=== PATIENT | female | born 1970 | race African-American/Black ===

== ENCOUNTER 2019-01-31 20:00 | Inpatient (IN) | payer OTHER ==
[2019-01-31] MEDS ORDERED: SODIUM CHLORIDE 1,000 ML IV SCH (20:30)
[2019-01-31 21:06] LABS: URINE APPEARANCE CLOUDY; URINE COLOR RED; URINE GLUCOSE (UA) NEGATIVE (NEGATIVE)
[2019-01-31 21:07] LABS: PH,URINE 6.5 (4.5-8); URINE BILIRUBIN 1+ (NEGATIVE); URINE KETONE 1+ (NEGATIVE); URINE LEUK ESTERASE NEGATIVE (NEGATIVE); URINE NITRITE NEGATIVE (NEGATIVE); URINE PROTEIN 2+ (NEGATIVE)
--- NOTE | 2019-01-31 21:16 | PDOC ---
Documentation entered by Yumiko Walker SCRIBE, acting as scribe for Lb Sidhu MD. Lb Sidhu MD: This documentation has been prepared by the nhanibAaron blanco Lincy, SCRIBE, under my direction and personally reviewed by me in its entirety. I confirm that the documentation accurately reflects all work , treatment, procedures, and medical decision making performed by me. History of Present Illness - General Chief Complaint: Weakness Stated Complaint: LEGS WEAK, TINGLING Time Seen by Provider: 01/31/19 20:49 History Source: Patient Exam Limitations: No Limitations - History of Present Illness Initial Comments: 01/31/19 21:13 The patient is a 48-year-old female with a past medical history significant for CVA (12 years ago) presents to the emergency department with weakness and numbness. [place] The patient reports since then shes been having left sided weakness that would radiate to the right side, associated with left-hand numbness. The patient reports the symptoms have improved since the presentation the patient reports associated symptoms of fatigue. The patient reports the symptoms are slightly similar to prior CVA. The patient reports a prior episode of CVA was associated with visual deficit and left-sided weakness. Denies visual deficit. The patient states she is able to ambulate with a steady gait. PAST MEDICAL HISTORY: CVA (12 years ago). PAST SURGICAL HISTORY: no significant history FAMILY HISTORY: no pertinent history SOCIAL HISTORY: Pt lives with family and is employed. MEDICATIONS: reviewed ALLERGIES: As per nursing notes ROS: General: No fevers or chills, no weakness, no weight loss HEENT: No change in vision. No sore throat,. No ear pain CardioVascular: No chest pain or shortness of breath Respiratory:No cough, or wheezing. Gastrointestinal: no nausea, vomiting, diarrhea or constipation, No rectal bleeding Genitourinary: No dysuria, hematuria, or frequency Musculoskeletal: No joint or muscle pain or swelling Neurologic: +left sided weakness, Left hand numbness. No headache, vertigo, dizziness or loss of consciousness Psychiatric: nor depression Skin: No rashes or easy bruising Endocrine: no increased thirst or abnormal weight change Allergic: no skin or latex allergy All other systems reviewed and normal PE: General: Well-nourished well-developed individual, no acute distress HEENT: Throat: Normal, tonsils normal, no erythema or exudate Neck: Supple, no meningeal signs, no lymphadenopathy Eyes::Pupils equal reactive and round, extraocular motion intact Chest: Nontender to palpation Cardiac: S1-S2 normal, regular rate and rhythm, no murmurs rubs or gallops Respiratory: Lungs clear to auscultation bilateral Abdomen: Soft, nondistended, normal bowel sounds, nontender to palpation diffusely Extremities: Warm, dry, no cyanosis, clubbing, or edema Skin: No rashes Neuro: +decreased sensation and weakness to the left upper extremity. Alert and oriented x3, grossly intact, normal gait Psych: Normal mood and affect 01/31/19 22:32 Assessment plan: This is a 48-year-old female who comes in complaining of left- sided weakness and numbness 2 days. Patient has history of CVA in the past on the left side with similar symptoms. Patient had a workup including CBC, comp, chest x-ray and EKG. Also head CT Head CT was negative for any acute pathology Patient's CBC does show a chronic anemia with a hemoglobin of 7.9 Discussed admission with the hospitalist patient will be placed in a inpatient bed. Past History - Past Medical History Allergies/Adverse Reactions: Allergies Allergy/AdvReac Type Severity Reaction Status Date / Time No Known Allergies Allergy Verified 01/31/19 20:05 Home Medications: Ambulatory Orders NK [No Known Home Medication] 01/31/19 CVA: Yes COPD: No - Suicide/Smoking/Psychosocial Hx Smoking History: Never smoked Have you smoked in the past 12 months: No Information on smoking cessation initiated: No Hx Alcohol Use: No *Physical Exam - Vital Signs Last Vital Signs Temp Pulse Resp BP Pulse Ox 98.3 F 76 18 131/85 100 01/31/19 20:00 01/31/19 20:00 01/31/19 20:00 01/31/19 20:00 01/31/19 20:00 ED Treatment Course - LABORATORY CBC & Chemistry Diagram: 01/31/19 21:00 01/31/19 21:00 - ADDITIONAL ORDERS Additional order review: Laboratory Results 01/31/19 01/31/19 20:50 20:50 Urine Color Red Urine Appearance Cloudy Urine pH 6.5 Ur Specific [place] 1.025 Urine Protein 2+ Urine Glucose (UA) Negative Urine Ketones 1+ H Urine Blood 3+ Urine Nitrite Negative Urine Bilirubin 1+ Urine Urobilinogen 1.0 Ur Leukocyte Esterase Negative Urine HCG, Qual Negative *DC/Admit/Observation/Transfer Diagnosis at time of Disposition: CVA (cerebral vascular accident) Qualifiers: CVA mechanism: unspecified Qualified Code(s): I63.9 - Cerebral infarction, unspecified - Discharge Dispostion Disposition: HOME Condition at time of disposition: Stable Decision to Admit order: Yes - Referrals - Patient Instructions - Post Discharge Activity NIH Stroke Scale - Last Known Well Date/Time & Onset Date Last Known Well: 01/29/19 - Initial Evaluation Ask patient the month and their age: Answers both correctly Ask patient to open & close eyes; make fist and let go: Obeys both correctly Best gaze (horizontal eye movement): Normal Visual field testing: No visual field loss Facial paresis (Show teeth/raise eyebrows/close eyes tight): Normal symmetrical movement Motor Function: Left Arm: Normal Motor Function: Right Arm: Normal (extends arm 90 (or 45) degrees for 10 seconds without drift Motor Function: Left Leg: Normal (extends leg 30 degrees for 5 seconds without drift) Motor Function: Right Leg: Normal (extends leg 30 degrees for 5 seconds without drift) Limb Ataxia: No ataxia Sensory(Use pinprick test arms,legs,trunk,face/side to side): Mild to moderate decrease in sensation Best language (Describe picture, name items, read sentences): No Aphasia Dysarthria (read several words): Normal articulation Extinction and Inattention: No abnormality
[2019-01-31 21:19] LABS: BASO % 0.4 % (0-2.0); EOS % 0.4 % (0-4.5); HEMATOCRIT 25.7 % (32.4-45.2); HEMOGLOBIN 7.8 GM/dl (10.7-15.3); LYMPH % 13.2 % (8-40); MCHC 30.3 g/dl (32.0-36.0); MEAN CELL VOLUME 69.3 fl (80-96); MEAN PLT VOLUME 7.1 fl (7.5-11.1); MONO % 7.6 % (3.8-10.2); NEUT % 78.4 % (42.8-82.8); PLATELET COUNT 522 K/MM3 (134-434); RBC 3.71 M/mm3 (3.60-5.2); RDW 19.4 % (11.6-15.6); WHITE BLOOD COUNT 9.5 K/mm3 (4.0-10.8)
[2019-01-31 21:23] LABS: ADD RBC MORPHOLOGY YES
[2019-01-31 21:27] LABS: EPI CELLS FEW /HPF; URINE BACTERIA MODERATE /hpf (NEGATIVE); URINE WBC >100 (NEGATIVE)
[2019-01-31 21:30] LABS: INR 1.49 (0.82-1.09); PROTHROMBIN TIME (PATIENT) 16.6 SEC (10.2-13.0)
[2019-01-31] MEDS ORDERED: ATORVASTATIN CA 80 MG TABLET (FP) PO SCH (22:00)
[2019-01-31 22:07] LABS: ALBUMIN 3.5 g/dl (3.4-5.0); BILIRUBIN,TOTAL 0.4 mg/dL (0.2-1); BLOOD UREA NITROGEN 9.8 mg/dL (7-18); CALCIUM 8.9 mg/dL (8.5-10.1); CREATININE 0.6 mg/dL (0.55-1.3); POTASSIUM 3.3 mmol/L (3.5-5.1); TOT PROT 7.7 g/dl (6.4-8.2)
--- NOTE | 2019-01-31 22:55 | HP ---
CHIEF COMPLAINT:numbness to arms and limbs and upper extremity left sided weakness PCP:Dr. 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 She reported she was unable to walk and reported dizziness. She denied headache, chest pain, shortness of breath, or palpitations. She denied any active bleeding and she is currently menstruating. She denied prior history of atrial fibrillation. Upon evaluation in the ER CT scan of head is unremarkable. Labs notable for hemglobin of 7.8, hematocrit 28.7. EKG with a normal sinus rhythm. Recent Travel: denies PAST MEDICAL HISTORY: CVA anemia PAST SURGICAL HISTORY: denies Social History: Smoking:denies Alcohol:denies Drugs: denies Family History:noncontributory Allergies No Known Allergies Allergy (Verified 01/31/19 20:05) HOME MEDICATIONS: Home Medications Medication Instructions Recorded NK [No Known Home Medication] 01/31/19 REVIEW OF SYSTEMS CONSTITUTIONAL: Absent: fever, chills, diaphoresis, generalized weakness, malaise, loss of appetite, weight change HEENT: Absent: rhinorrhea, nasal congestion, throat pain, throat swelling, difficulty swallowing, mouth swelling, ear pain, eye pain, visual changes CARDIOVASCULAR: Absent: chest pain, syncope, palpitations, irregular heart rate, lightheadedness , peripheral edema RESPIRATORY: Absent: cough, shortness of breath, dyspnea with exertion, orthopnea, wheezing, stridor, hemoptysis GASTROINTESTINAL: Absent: abdominal pain, abdominal distension, nausea, vomiting, diarrhea, constipation, melena, hematochezia GENITOURINARY: Absent: dysuria, frequency, urgency, hesitancy, hematuria, flank pain, genital pain MUSCULOSKELETAL: Absent: myalgia, arthralgia, joint swelling, back pain, neck pain SKIN: Absent: rash, itching, pallor HEMATOLOGIC/IMMUNOLOGIC: Absent: easy bleeding, easy bruising, lymphadenopathy, frequent infections ENDOCRINE: Absent: unexplained weight gain, unexplained weight loss, heat intolerance, cold intolerance NEUROLOGIC: Absent: headache, focal weakness or paresthesias, dizziness, unsteady gait, seizure, mental status changes, bladder or bowel incontinence numbness to arms and legs PSYCHIATRIC: Absent: anxiety, depression, suicidal or homicidal ideation, hallucinations. PHYSICAL EXAMINATION Vital Signs - 24 hr 01/31/19 20:00 Temperature 98.3 F Pulse Rate 76 Respiratory 18 Rate Blood Pressure 131/85 O2 Sat by Pulse 100 Oximetry (%) GENERAL: awake alert and oriented no acute distress HEAD: normal EYES: pupils equal, round and reactive to light EARS, NOSE, THROAT: ears normal, nares patent NECK: normal range of motion LUNGS: breath sounds clear to auscultation bilaterally nonlabored breathing effort no rales no wheezing HEART: regular rate and rhythm normal S1 and S2 ABDOMEN: soft nontender not distended, normoactive bowel sounds MUSCULOSKELETAL: normal range of motion at all joints no bony deformities or tenderness UPPER EXTREMITIES: 2+ pulses, warm, well-perfused no cyanosis. no peripheral edema LOWER EXTREMITIES: 2+ pulses, warm, well-perfused no peripheral edema NEUROLOGICAL: normal speech no facial droop no facial grimace speech clear left hand grasp weaker than right moving all extremities BLE strong bilaterally PSYCHIATRIC: cooperative good eye contact appropriate mood and affect SKIN: warm dry normal turgor no rashes or lesions noted normal capillary refill Laboratory Results - last 24 hr 01/31/19 01/31/19 01/31/19 20:50 20:50 21:00 WBC 9.5 RBC 3.71 Hgb 7.8 L Hct 25.7 L MCV 69.3 L MCH 21.0 L MCHC 30.3 L RDW 19.4 H Plt Count 522 H MPV 7.1 L Absolute Neuts (auto) 7.5 Neutrophils % 78.4 Lymphocytes % 13.2 Monocytes % 7.6 Eosinophils % 0.4 Basophils % 0.4 PT with INR INR Sodium Potassium Chloride Carbon Dioxide Anion Gap BUN Creatinine Est GFR (CKD-EPI)AfAm Est GFR (CKD-EPI)NonAf Random Glucose Calcium Total Bilirubin AST ALT Alkaline Phosphatase Creatine Kinase Creatine Kinase Index CK-MB (CK-2) Troponin I Total Protein Albumin Triglycerides Cholesterol Total LDL Cholesterol HDL Cholesterol Urine Color Red Urine Appearance Cloudy Urine pH 6.5 Ur Specific [place] 1.025 Urine Protein 2+ Urine Glucose (UA) Negative Urine Ketones 1+ H Urine Blood 3+ Urine Nitrite Negative Urine Bilirubin 1+ Urine Urobilinogen 1.0 Ur Leukocyte Esterase Negative Urine WBC (Auto) >100 Urine RBC (Auto) 2-5 U Epithel Cells (Auto) Few Urine Bacteria (Auto) Moderate Urine HCG, Qual Negative 01/31/19 01/31/19 01/31/19 21:00 21:00 21:00 WBC RBC Hgb Hct MCV MCH MCHC RDW Plt Count MPV Absolute Neuts (auto) Neutrophils % Lymphocytes % Monocytes % Eosinophils % Basophils % PT with INR 16.6 H INR 1.49 H Sodium 136 Potassium 3.3 L Chloride 105 Carbon Dioxide 24 Anion Gap 7 L BUN 9.8 Creatinine 0.6 Est GFR (CKD-EPI)AfAm 124.05 Est GFR (CKD-EPI)NonAf 107.03 Random Glucose 86 Calcium 8.9 Total Bilirubin 0.4 AST 23 ALT 17 Alkaline Phosphatase 53 Creatine Kinase 152 Creatine Kinase Index 0.6 CK-MB (CK-2) 1.0 Troponin I Cancelled < 0.03 Total Protein 7.7 Albumin 3.5 Triglycerides 106 Cholesterol 137 Total LDL Cholesterol 78 HDL Cholesterol 45 Urine Color Urine Appearance Urine pH Ur Specific [place] Urine Protein Urine Glucose (UA) Urine Ketones Urine Blood Urine Nitrite Urine Bilirubin Urine Urobilinogen Ur Leukocyte Esterase Urine WBC (Auto) Urine RBC (Auto) U Epithel Cells (Auto) Urine Bacteria (Auto) Urine HCG, Qual 01/31/19 21:00 WBC RBC Hgb Hct MCV MCH MCHC RDW Plt Count MPV Absolute Neuts (auto) Neutrophils % Lymphocytes % Monocytes % Eosinophils % Basophils % PT with INR INR Sodium Potassium Chloride Carbon Dioxide Anion Gap BUN Creatinine Est GFR (CKD-EPI)AfAm Est GFR (CKD-EPI)NonAf Random Glucose Calcium Total Bilirubin AST ALT Alkaline Phosphatase Creatine Kinase 152 Creatine Kinase Index Cancelled CK-MB (CK-2) Cancelled Troponin I Total Protein Albumin Triglycerides Cholesterol Total LDL Cholesterol HDL Cholesterol Urine Color Urine Appearance Urine pH Ur Specific [place] Urine Protein Urine Glucose (UA) Urine Ketones Urine Blood Urine Nitrite Urine Bilirubin Urine Urobilinogen Ur Leukocyte Esterase Urine WBC (Auto) Urine RBC (Auto) U Epithel Cells (Auto) Urine Bacteria (Auto) Urine HCG, Qual ASSESSMENT/PLAN: 48 year old female with history of CVA secondary secondary to hormonal therapy as reported 12 years ago and chronic anemia who presents with symptoms of numbness to both arms and legs and left upper extremity weakness. She also reported she was unable to walk and reported dizziness. TIA versus CVA Workup- CT scan of head is unremarkable. Lipid panel WNL. Troponin normal. -Neurology consulted- Dr. Arauz, likely will need a MRA of head -Add asa Chronic Anemia hemglobin of 7.8/hematocrit 28.5 -Check TIBC,ferritin studies -Consider hematology consult in am when iron studies result Hypokalemia repleted, repeat BMP in am FEN regular diet, monitor electrolytes closely DVT SCD's, TEDS Visit type - Emergency Visit Emergency Visit: Yes ED Registration Date: 01/31/19 Care time: The patient presented to the Emergency Department on the above date and was hospitalized for further evaluation of their emergent condition. - New Patient This patient is new to me today: Yes Date on this admission: 01/31/19 - Critical Care Critical Care patient: No
[2019-01-31] MEDS ORDERED: POTASSIUM CHLORIDE TABS 20 MEQ TABLET.ER (FP) PO ONE (23:10)
[2019-01-31 23:41] LABS: ANISOCYTOSIS 2+
[2019-01-31 23:42] LABS: PLATELET ESTIMATE SLT INCREASE
[2019-02-01 00:06] VITALS: BMI 19.4
[2019-02-01 07:59] LABS: HEMATOCRIT 24.7 % (32.4-45.2); HEMOGLOBIN 7.4 GM/dl (10.7-15.3); MCH 20.9 pg (25.7-33.7); MCHC 29.7 g/dl (32.0-36.0); MEAN CELL VOLUME 70.3 fl (80-96); PLATELET COUNT 503 K/MM3 (134-434); RBC 3.52 M/mm3 (3.60-5.2); RDW 19.6 % (11.6-15.6); WHITE BLOOD COUNT 7.1 K/mm3 (4.0-10.8)
[2019-02-01 09:23] LABS: BLOOD UREA NITROGEN 6.8 mg/dL (7-18); CALCIUM 8.4 mg/dL (8.5-10.1); CREATININE 0.6 mg/dL (0.55-1.3); POTASSIUM 3.9 mmol/L (3.5-5.1)
[2019-02-01 09:24] LABS: CHOLESTEROL 123 mg/dL (50-200); HDL CHOLESTEROL 37 mg/dL (40-60); LDL CHOLESTEROL (ONLY DFH) 71 mg/dl (5-100); TRIGLYCERIDES 75 mg/dL (0-150)
[2019-02-01] MEDS ORDERED: ASPIRIN 81 MG CHEWABLE TABLETS PO SCH (10:00)
[2019-02-01 11:54] VITALS: BP 131/77; PULSE 91; TEMP 97.5
--- NOTE | 2019-02-01 12:12 | CON.NEURO ---
Consult - Alcohol/Substance Use Hx Alcohol Use: No - Smoking History Smoking history: Never smoked Have you smoked in the past 12 months: No Home Medications - Allergies Allergies/Adverse Reactions: Allergies Allergy/AdvReac Type Severity Reaction Status Date / Time No Known Allergies Allergy Verified 01/31/19 20:05 - Home Medications Home Medications: Ambulatory Orders NK [No Known Home Medication] 01/31/19 Physical Exam-Neuro Vital Signs: Vital Signs Temperature 97.5 F L 02/01/19 11:48 Pulse Rate 91 H 02/01/19 11:48 Respiratory Rate 18 02/01/19 11:48 Blood Pressure 131/77 02/01/19 11:48 O2 Sat by Pulse Oximetry (%) 100 02/01/19 06:48 Labs: CBC, BMP 02/01/19 07:21 02/01/19 07:21 INR, PTT INR 1.49 (0.82-1.09) H 01/31/19 21:00 Assessment/Plan CC Left arm ( below elbow) , leg( below knee) tingling and numbness for one day HPI 48 yea andrzej female history of stroke 12 years ago , when she was taking hormonal therapy. Patient also have nemia, and she presented with left arm and leg numbness and weaknes.s Symptoms resolved. She do have intermittent numbness over the years and intermittent tripping all along for 12 years. Patient was advice to take aspirin and she was not taking. Patient is feeling better, she denies any cardiac history. She denies smoking or headache or any other focal neurological symptoms. PMH Stroke and anemia PSH,FH,ROS,SH reviewed in chart Home Medications Medication Instructions Recorded NK [No Known Home Medication] 01/31/19 NEUROLOGICAL SYMPTOMS Alert oriented x 3, speech is normal,no neck stiffness eomi, pupils reactive, no face asymmetry Moving all ext , 5/5 allext There is slight dysthesia in left hand and left leg reflex are symmetrical mri of brain showed difffuse white matter disease Assessment/Plan 48 year old female history fo tia and had left arm numbness and left leg numbness intermittently and now getting worse with ? weakness. Patient has diffuse white matter disease, and no history of HTN, DM. Unlikely to be acute stroke or MS. Other possibility include focal seizure, migraine , and ? telephone cleaner vasculitis Plan: suggest to do carotid ultrasound and echo - c reactive protein, esr, rpr, [place] - continue aspirin and statin - PT , CONSIDER emg and eeg outpatient for numbness Thanking you so much Darren Bianchi MD
--- NOTE | 2019-02-01 12:50 | EKG ---
Test Reason : Blood Pressure : / mmHG Vent. Rate : 086 BPM Atrial Rate : 086 BPM P-R Int : 120 ms QRS Dur : 068 ms QT Int : 368 ms P-R-T Axes : 082 004 007 degrees QTc Int : 440 ms NORMAL SINUS RHYTHM NORMAL ECG WHEN COMPARED WITH ECG OF 31-JAN-2019 21:24, NO SIGNIFICANT CHANGE WAS FOUND Confirmed by Luan Lyle MD ([id number]) on 02/01/2019 12:50:00 PM Referred By: Confirmed By:Luan Lyle MD
--- NOTE | 2019-02-01 12:50 | EKG ---
Test Reason : Blood Pressure : / mmHG Vent. Rate : 074 BPM Atrial Rate : 074 BPM P-R Int : 120 ms QRS Dur : 076 ms QT Int : 376 ms P-R-T Axes : 083 007 -03 degrees QTc Int : 417 ms NORMAL SINUS RHYTHM WITH SINUS ARRHYTHMIA NORMAL ECG NO PREVIOUS ECGS AVAILABLE Confirmed by Luan Lyle MD ([id number]) on 02/01/2019 12:50:02 PM Referred By: Confirmed By:Luan Lyle MD
--- NOTE | 2019-02-01 15:32 | DS ---
Physical Exam: SUBJECTIVE: Patient seen and examined OBJECTIVE: Vital Signs Period Temp Pulse Resp BP Sys/Hill Pulse Ox Last 24 Hr 97.5 F-98.3 F 71-91 18-19 113-131/62-85 100-100 PHYSICAL EXAM GENERAL: The patient is awake, alert, and fully oriented, in no acute distress. HEAD: Normal with no signs of trauma. EYES: PERRL, extraocular movements intact, sclera anicteric, conjunctiva clear. ENT: Ears normal, nares patent, oropharynx clear without exudates, moist mucous membranes. NECK: Trachea midline, full range of motion, supple. LUNGS: Breath sounds equal, clear to auscultation bilaterally, no wheezes, no crackles, no accessory muscle use. HEART: Regular rate and rhythm, S1, S2 without murmur, rub or gallop. ABDOMEN: Soft, nontender, nondistended, normoactive bowel sounds, no guarding, no rebound, no hepatosplenomegaly, no masses. EXTREMITIES: 2+ pulses, warm, well-perfused, no edema. NEUROLOGICAL: Cranial nerves II through XII grossly intact. Normal speech, gait not observed. PSYCH: Normal mood, normal affect. SKIN: Warm, dry, normal turgor, no rashes or lesions noted. LABS Laboratory Results - last 24 hr 01/31/19 01/31/19 01/31/19 20:50 20:50 21:00 WBC 9.5 RBC 3.71 Hgb 7.8 L Hct 25.7 L MCV 69.3 L MCH 21.0 L MCHC 30.3 L RDW 19.4 H Plt Count 522 H MPV 7.1 L Absolute Neuts (auto) 7.5 Neutrophils % 78.4 Lymphocytes % 13.2 Monocytes % 7.6 Eosinophils % 0.4 Basophils % 0.4 Hypochromia 3+ Platelet Estimate Slt increase Anisocytosis 2+ Microcytosis 2+ ESR PT with INR INR Sodium Potassium Chloride Carbon Dioxide Anion Gap BUN Creatinine Est GFR (CKD-EPI)AfAm Est GFR (CKD-EPI)NonAf Random Glucose Calcium Total Bilirubin AST ALT Alkaline Phosphatase Creatine Kinase Creatine Kinase Index CK-MB (CK-2) Troponin I Total Protein Albumin Triglycerides Cholesterol Total LDL Cholesterol HDL Cholesterol Urine Color Red Urine Appearance Cloudy Urine pH 6.5 Ur Specific [place] 1.025 Urine Protein 2+ Urine Glucose (UA) Negative Urine Ketones 1+ H Urine Blood 3+ Urine Nitrite Negative Urine Bilirubin 1+ Urine Urobilinogen 1.0 Ur Leukocyte Esterase Negative Urine WBC (Auto) >100 Urine RBC (Auto) 2-5 U Epithel Cells (Auto) Few Urine Bacteria (Auto) Moderate Urine HCG, Qual Negative RPR Titer Blood Type Antibody Screen 01/31/19 01/31/19 01/31/19 21:00 21:00 21:00 WBC RBC Hgb Hct MCV MCH MCHC RDW Plt Count MPV Absolute Neuts (auto) Neutrophils % Lymphocytes % Monocytes % Eosinophils % Basophils % Hypochromia Platelet Estimate Anisocytosis Microcytosis ESR PT with INR 16.6 H INR 1.49 H Sodium 136 Potassium 3.3 L Chloride 105 Carbon Dioxide 24 Anion Gap 7 L BUN 9.8 Creatinine 0.6 Est GFR (CKD-EPI)AfAm 124.05 Est GFR (CKD-EPI)NonAf 107.03 Random Glucose 86 Calcium 8.9 Total Bilirubin 0.4 AST 23 ALT 17 Alkaline Phosphatase 53 Creatine Kinase 152 Creatine Kinase Index 0.6 CK-MB (CK-2) 1.0 Troponin I Cancelled Total Protein 7.7 Albumin 3.5 Triglycerides 106 Cholesterol 137 Total LDL Cholesterol 78 HDL Cholesterol 45 Urine Color Urine Appearance Urine pH Ur Specific [place] Urine Protein Urine Glucose (UA) Urine Ketones Urine Blood Urine Nitrite Urine Bilirubin Urine Urobilinogen Ur Leukocyte Esterase Urine WBC (Auto) Urine RBC (Auto) U Epithel Cells (Auto) Urine Bacteria (Auto) Urine HCG, Qual RPR Titer Blood Type O POSITIVE Antibody Screen Negative 01/31/19 01/31/19 01/31/19 21:00 21:00 21:05 WBC RBC Hgb Hct MCV MCH MCHC RDW Plt Count MPV Absolute Neuts (auto) Neutrophils % Lymphocytes % Monocytes % Eosinophils % Basophils % Hypochromia Platelet Estimate Anisocytosis Microcytosis ESR PT with INR INR Sodium Potassium Chloride Carbon Dioxide Anion Gap BUN Creatinine Est GFR (CKD-EPI)AfAm Est GFR (CKD-EPI)NonAf Random Glucose Calcium Total Bilirubin AST ALT Alkaline Phosphatase Creatine Kinase 152 Creatine Kinase Index Cancelled CK-MB (CK-2) Cancelled Troponin I < 0.03 Total Protein Albumin Triglycerides Cholesterol Total LDL Cholesterol HDL Cholesterol Urine Color Urine Appearance Urine pH Ur Specific [place] Urine Protein Urine Glucose (UA) Urine Ketones Urine Blood Urine Nitrite Urine Bilirubin Urine Urobilinogen Ur Leukocyte Esterase Urine WBC (Auto) Urine RBC (Auto) U Epithel Cells (Auto) Urine Bacteria (Auto) Urine HCG, Qual RPR Titer Blood Type O POSITIVE Antibody Screen 02/01/19 02/01/19 02/01/19 07:21 07:21 07:21 WBC 7.1 RBC 3.52 L Hgb 7.4 L Hct 24.7 L MCV 70.3 L MCH 20.9 L MCHC 29.7 L RDW 19.6 H Plt Count 503 H MPV 7.0 L Absolute Neuts (auto) Neutrophils % Lymphocytes % Monocytes % Eosinophils % Basophils % Hypochromia Platelet Estimate Anisocytosis Microcytosis ESR PT with INR INR Sodium 140 Potassium 3.9 Chloride 110 H Carbon Dioxide 22 Anion Gap 7 L BUN 6.8 L Creatinine 0.6 Est GFR (CKD-EPI)AfAm 124.05 Est GFR (CKD-EPI)NonAf 107.03 Random Glucose 76 Calcium 8.4 L Total Bilirubin AST ALT Alkaline Phosphatase Creatine Kinase Creatine Kinase Index CK-MB (CK-2) Troponin I Total Protein Albumin Triglycerides 75 Cholesterol 123 Total LDL Cholesterol 71 HDL Cholesterol 37 L Urine Color Urine Appearance Urine pH Ur Specific [place] Urine Protein Urine Glucose (UA) Urine Ketones Urine Blood Urine Nitrite Urine Bilirubin Urine Urobilinogen Ur Leukocyte Esterase Urine WBC (Auto) Urine RBC (Auto) U Epithel Cells (Auto) Urine Bacteria (Auto) Urine HCG, Qual RPR Titer Blood Type Antibody Screen 02/01/19 02/01/19 12:40 12:40 WBC RBC Hgb Hct MCV MCH MCHC RDW Plt Count MPV Absolute Neuts (auto) Neutrophils % Lymphocytes % Monocytes % Eosinophils % Basophils % Hypochromia Platelet Estimate Anisocytosis Microcytosis ESR 50 H PT with INR INR Sodium Potassium Chloride Carbon Dioxide Anion Gap BUN Creatinine Est GFR (CKD-EPI)AfAm Est GFR (CKD-EPI)NonAf Random Glucose Calcium Total Bilirubin AST ALT Alkaline Phosphatase Creatine Kinase Creatine Kinase Index CK-MB (CK-2) Troponin I Total Protein Albumin Triglycerides Cholesterol Total LDL Cholesterol HDL Cholesterol Urine Color Urine Appearance Urine pH Ur Specific [place] Urine Protein Urine Glucose (UA) Urine Ketones Urine Blood Urine Nitrite Urine Bilirubin Urine Urobilinogen Ur Leukocyte Esterase Urine WBC (Auto) Urine RBC (Auto) U Epithel Cells (Auto) Urine Bacteria (Auto) Urine HCG, Qual RPR Titer Nonreactive Blood Type Antibody Screen HOSPITAL COURSE: Date of Admission:01/31/19 Date of Discharge: 02/01/19 Minutes to complete discharge: 35 Discharge Summary Reason For Visit: LEGS WEAK, TINGLING Current Active Problems CVA (cerebral vascular accident) (Acute) Condition: Improved - Instructions Diet, Activity, Other Instructions: It is recommended you follow up with a neurologist. You may choose to see Dr. Petra Ashby. His contact information is enclosed. A CD-ROM with your imaging studies has been prepared for you. Return to the emergency department for any new or worsening symptoms. Referrals: Petra Ashby MD [Staff Physician] - Disposition: HOME - Home Medications Comprehensive Discharge Medication List: Ambulatory Orders Aspirin [ASA -] 81 mg PO DAILY #30 tab.chew 02/01/19 Atorvastatin Ca [Lipitor] 80 mg PO HS #30 tablet 02/01/19 This patient is new to me today: Yes Date on this admission: 02/01/19 Emergency Visit: Yes ED Registration Date: 01/31/19 Care time: The patient presented to the Emergency Department on the above date and was hospitalized for further evaluation of their emergent condition. Critical Care patient: No - Discharge Referral Referred to [facility] Med P.C.: No
[2019-02-02 08:11] LABS: SERUM IRON SATURATION 3 % (15-55); TOTAL IRON BINDING CAPACITY 354 ug/dL (250-450); UIBC 342 ug/dL (131-425)
--- NOTE | 2019-02-02 09:07 | ECHO ---
Version: 1 Name: DEBBIE JURADO Exam: Adult Echocardiogram Study Date: 02/01/2019, 2:01 PM Age: 48 Years MMode/2D Measurements & Calculations IVSd: 0.87 cm LVIDs: 3.1 cm LVIDd: 4.5 cm LVPWd: 0.98 cm LVOT diam: 2.00 cm Ao root diam: 2.46 cm LA dimension: 2.38 cm Doppler Measurements & Calculations MV E max fabien: 93.3 cm/sec MV A max fabien: 56.4 cm/sec MV E/A: 1.65 MR max P.0 mmHg Ao max P.7 mmHg Ao V2 max: 119.1 cm/sec PI end-d fabien: 159.6 cm/sec TR max fabien: 202.8 cm/sec TR max P.5 mmHg Left Ventricle The left ventricular size, thickness and function are normal. Right Ventricle The right ventricle is normal in size and function. Atria Normal left and right atrial size and function. Mitral Valve The mitral valve is grossly normal. There is mild mitral regurgitation. Tricuspid Valve The tricuspid valve is normal. There is mild tricuspid regurgitation. Aortic Valve The aortic valve is normal in structure and function. Pulmonic Valve The pulmonic valve is not well seen, but is grossly normal. Great Vessels The aortic root is normal size. Pericardium/Pleura There is no pericardial effusion. Summary Statements The left ventricular size, thickness and function are normal The right ventricle is normal in size and function. Normal left and right atrial size and function. There is mild mitral regurgitation. There is mild tricuspid regurgitation. The aortic valve is normal in structure and function. EF 60% PASP 21 mmHg MD Leonel Hoover 02/02/2019, 8:06 AM Ordering Physician: Pippa Maxwell Referring Physician: SLAVA BAPTISTE Performed By: Sara Whitehead
== END 2019-02-01 16:31 | disposition home or self-care (01) | DRG 149 ==
LOC: FER 20:00 → FM/S 22:36
PROVIDERS: ADMIT Internal Medicine; ATTEND Nurse Practitioner Acute Care
DX: R42 Dizziness and giddiness (principal); I69.354 Hemiplegia and hemiparesis following cerebral infarction affecting left non-dominant side; R20.0 Anesthesia of skin; D64.9 Anemia, unspecified; E87.6 Hypokalemia
CPT/HCPCS: 36415; 70450-TC; 70544-TC; 70551-TC; 80048; 80053; 80061; 81003; 82465; 82550; 82553; 83540; 83550; 83718; 83721; 84478; 84484; 84703; 85025; 85027; 85610; 85651; 86038; 86593; 86850; 86900; 86901; 93005; 93306-TC; 93880-TC; 97116-GP; 97162-GP; 99283-25; J7030

== ENCOUNTER 2023-12-19 07:18 | Inpatient (IN) | payer BC, OTHER ==
[2023-12-19] MEDS ORDERED: ACETAMINOPHEN 325 MG TABLET (FP) ONE (07:59)
[2023-12-19] MEDS: ACETAMINOPHEN 325 MG TABLET (FP) PO ONE (08:04)
[2023-12-19] MEDS ORDERED: DEXAMETHASONE SOD PHOSPHATE 10 MG/1 ML VIAL ONE (08:20)
[2023-12-19 08:51] LABS: HEMATOCRIT 24.8 % (32.4-45.2); MCHC 28.3 g/dl (32.0-36.0); MEAN CELL VOLUME 68.8 fl (80-96); MEAN PLT VOLUME 7.3 fl (7.5-11.1); PLATELET COUNT 378.7 10^3/uL (134-434); RBC 3.61 10^6/uL (3.60-5.2); RDW 21.8 % (11.6-15.6); WHITE BLOOD COUNT 5.4 10^3/uL (4.0-10.8)
[2023-12-19 08:52] LABS: MCH 19.4 pg (25.7-33.7)
[2023-12-19 08:59] LABS: ALBUMIN 4.1 g/dl (3.4-5.0); BILIRUBIN,TOTAL 0.3 mg/dl (0.2-1); CALCIUM 9.3 mg/dl (8.5-10.1); CREATININE 0.7 mg/dl (0.6-1.3); POTASSIUM 3.5 mmol/L (3.5-5.1); TOT PROT 7.3 g/dl (6.4-8.2)
[2023-12-19 09:01] LABS: PLATELET ESTIMATE ADEQUATE
[2023-12-19 10:38] VITALS: BMI 17.9
[2023-12-19] MEDS: PANTOPRAZOLE 40 MG TABLET PO SCH (13:18)
[2023-12-19] MEDS: SODIUM CHLORIDE 1,000 ML IV SCH (13:45)
[2023-12-19] MEDS: ACETAMINOPHEN 325 MG TABLET (FP) PO PRN (23:05)
[2023-12-20 10:01] LABS: ALBUMIN 3.4 g/dl (3.4-5.0); BILIRUBIN,TOTAL 0.5 mg/dl (0.2-1); CALCIUM 8.4 mg/dl (8.5-10.1); CREATININE 0.6 mg/dl (0.6-1.3); MAGNESIUM 1.6 mg/dL (1.8-2.4); PHOSPHOROUS 3.1 (2.5-4.9); POTASSIUM 3.5 mmol/L (3.5-5.1); TOT PROT 6.2 g/dl (6.4-8.2)
[2023-12-20 11:10] LABS: EOS % 1.8 % (0-4.5); HEMATOCRIT 29.2 % (32.4-45.2); HEMOGLOBIN 9.3 GM/dL (10.7-15.3); MCH 22.9 pg (25.7-33.7); MEAN CELL VOLUME 71.5 fl (80-96); MONO % 13.6 % (3.8-10.2); NEUT % 61.6 % (42.8-82.8); PLATELET COUNT 329 10^3/uL (134-434); RBC 4.08 M/mm3 (3.60-5.2); RDW 24.7 % (11.6-15.6); WHITE BLOOD COUNT 5.2 K/mm3 (4.0-10.0)
[2023-12-20 11:42] LABS: ANISOCYTOSIS 2+; MACROCYTOSIS 0; OVALOCYTE 1+
[2023-12-20] MEDS ORDERED: IRON SUCROSE INJECTION 100 MG in SODIUM CHLORIDE 95 ML IVPB ONE (12:30)
[2023-12-20] MEDS: MAGNESIUM OXIDE 400 MG TABLET (FP) PO ONE (12:48)
[2023-12-20] MEDS: IRON SUCROSE INJECTION 100 MG in SODIUM CHLORIDE 95 ML IVPB ONE (14:11)
[2023-12-20 14:25] VITALS: BP 126/68; PULSE 88; RESP 18; TEMP 99.7
== END 2023-12-20 15:55 | disposition home or self-care (01) | DRG 812 ==
LOC: FER 07:18 → FM/S 09:16
PROC: 30233N1 Transfusion of Nonautologous Red Blood Cells into Peripheral Vein, Percutaneous Approach (ICD-10-PCS; principal; 2023-12-19)
DX: D50.9 Iron deficiency anemia, unspecified (principal); D25.9 Leiomyoma of uterus, unspecified
CPT/HCPCS: 0241U-QW; 36415; 36430; 71045-TC-FY; 80053; 81003; 81015; 82728; 83540; 83550; 83735; 84100; 84443; 84466; 84484; 85025; 85027; 85660; 86850; 86900; 86901; 86922; 87040; 87086; 93005; 99285-25; J1756; P9058